=== PATIENT | female | born 1945 | race Caucasian/White ===

== ENCOUNTER → 2017-03-05 | Outpatient (CLI) | payer MEDICARE, OTHER | LOC: MC.RAD 08:49 | DX: Z12.31 Encounter for screening mammogram for malignant neoplasm of breast (principal) ==

== ENCOUNTER → 2018-03-14 | Outpatient (CLI) | payer MEDICARE, OTHER | LOC: MC.RAD 12:58 | DX: Z12.31 Encounter for screening mammogram for malignant neoplasm of breast (principal); Z98.890 Other specified postprocedural states ==

== ENCOUNTER → 2019-03-19 | Outpatient (CLI) | payer MEDICARE, OTHER | LOC: MC.RAD 07:15 | DX: Z12.31 Encounter for screening mammogram for malignant neoplasm of breast (principal); Z85.3 Personal history of malignant neoplasm of breast ==

== ENCOUNTER → 2020-03-22 | Outpatient (CLI) | payer MEDICARE, OTHER | LOC: MC.RAD 10:20 | DX: Z12.31 Encounter for screening mammogram for malignant neoplasm of breast (principal) ==

== ENCOUNTER → 2021-04-04 | Outpatient (CLI) | payer MEDICARE, OTHER | LOC: MC.RAD 13:26 | DX: Z12.31 Encounter for screening mammogram for malignant neoplasm of breast (principal) ==